=== PATIENT | male | born 1985 | race Caucasian/White ===

== ENCOUNTER 2022-02-20 21:30 | Emergency (ER) | payer OTHER ==
[2022-02-20 22:18] LABS: BASOPHIL 0.1 % (0-2); EOSINOPHIL 1.5 % (0-5); HCT 48.5 % (42.0-52.0); HGB 16.5 g/dl (13.2-18.0); LYMPHOCYTE 12.9 % (15-48); MCH 29.2 pg (25.0-31.0); MCV 85.7 fL (78.0-100.0); MONOCYTE 6.4 % (0-12); MPV 9.9 fL (6.0-9.5); NEUTROPHIL 78.8 % (41-80); NRBC 0; PLT 309 K/uL (150-400); RBC 5.66 M/uL (4.70-6.00); RDW 12.6 % (11.5-14.0); WBC 11.9 K/uL (4.0-10.5)
[2022-02-20 22:57] LABS: BUN/CREAT RATIO (CALC) 10.4 RATIO; CREATININE 1.06 mg/dL (0.67-1.17); POTASSIUM 3.7 mmol/L (3.5-5.1)
[2022-02-20 22:58] LABS: BILIRUBIN - TOTAL 0.9 mg/dL (0.2-1.0); GLOBULIN (CALCULATION) 3.6 g/dL; TOTAL PROTEIN 7.6 g/dL (6.4-8.2)
[2022-02-21] MEDS ORDERED: ATARAX25 MG PO (00:24)
[2022-02-21] MEDS ORDERED: PHENERGAN25 M1 PO (00:24)
[2022-02-21] MEDS ORDERED: MEDROL 4MG DOSEP4 MG PO (00:24)
== END 2022-02-21 00:35 | disposition home or self-care (01) ==
LOC: FER 21:30
PROVIDERS: Physician Assistant
DX: R11.2 Nausea with vomiting, unspecified (principal); R10.9 Unspecified abdominal pain; L50.9 Urticaria, unspecified; Z88.0 Allergy status to penicillin
CPT/HCPCS: 36415; 80053; 83690; 85025; J1200; J2765; J2930; J7030; Q9967